=== PATIENT | male | born 1950 | race Two or more races ===

== ENCOUNTER 2021-07-30 07:33 | Outpatient (CLI) | payer OTHER ==
[~2021-07-30 07:33] MED LIST: CATAFLAM 50 MG PO; DECADRON P4 MG/ML-1M IH; FLEXERIL 10 MG PO; TORADOL60 MG IM
== END 2021-07-30 07:42 | disposition home or self-care (01) ==
LOC: LAB 07:33
PROVIDERS: ATTEND Urology
DX: R97.20 Elevated prostate specific antigen [PSA] (principal)

== ENCOUNTER 2021-08-04 07:31 | Outpatient (CLI) | payer OTHER | END 2021-08-04 07:32 | disposition home or self-care (01) | LOC: SONOGRAMA 07:31 | PROVIDERS: ATTEND Urology | DX: D29.1 Benign neoplasm of prostate (principal) ==

== ENCOUNTER → 2023-08-09 | Emergency (ER) | payer OTHER ==
[~2023-08-09] VITALS: Ht 162.6 cm; Wt 76.2 kg
[2023-08-09 20:30] LABS: HEMATOCRIT 39.3 % (39.0-48.0); HEMOGLOBIN 13.5 g/dL (13-16.00); MEAN CELL VOLUME 90.1 fL (80.0-100.00); MEAN CORPUSCULAR HEMOGLOBIN 30.9 pg (27.00-32.0); MEAN CORPUSCULAR HGB CONC 34.2 g/dl (32.0-36.0); PLATELET COUNT 155 K/uL (150-450); RED BLOOD COUNT 4.36 M/uL (4.00-6.00); RED CELL DISTRIBUTION WIDTH 13.5 % (11.5-14.5)
[2023-08-09 21:00] LABS: PH,URINE 5.5 (5.0-8.0); URINE APPEARANCE Clear; URINE BILIRRUBIN Negative (NEGATIVE); URINE BLOOD Negative; URINE COLOR Yellow; URINE GLUCOSE Negative (NEGATIVE); URINE LEUKOCYTE Trace; URINE NITRATE Negative; URINE PROTEIN Negative (NEGATIVE)
[2023-08-09 21:04] LABS: URINE EPITHELIAL CELLS 2.7 uL (0.0-38.8); URINE RBC 30.7 uL (0.0-20.8); URINE WBC 27.3 uL (0.0-23.2)
[2023-08-09 21:08] LABS: INR 0.96; PROTHROMBIN TIME 10.1 SECONDS (9.0-11.5)
[2023-08-09 21:12] LABS: ALBUMIN 3.7 gm/dL (3.4-5.0); BILIRUBIN TOTAL 0.3 mg/dL (0.3-1.2); CALCIUM 9.2 mg/dL (8.5-10.1); CREATININE SERUM 0.91 mg/dL (0.70-1.30); GFR 82.13; GLOBULINA 3.8 G/DL (2.4-3.5); POTASSIUM 3.91 mEq/L (3.5-5.1); TOTAL PROTEIN 7.5 gm/dL (6.4-8.2)
== END | disposition designated cancer center or children's hospital (05) ==
LOC: ER 18:09
PROVIDERS: General Practice
DX: I62.01 Nontraumatic acute subdural hemorrhage (principal); I10 Essential (primary) hypertension; Z20.822 Contact with and (suspected) exposure to COVID-19